=== PATIENT | female | born 1995 | race Caucasian/White ===

== ENCOUNTER → 2016-10-20 | Outpatient (REF) | payer BC | LOC: M SFHCWAGY 12:46 | PROVIDERS: ATTEND Nurse Practitioner Family | DX: Z11.3 Encounter for screening for infections with a predominantly sexual mode of transmission (principal) ==

== ENCOUNTER → 2017-01-05 | Outpatient (REF) | payer BC | LOC: M WUC 16:47 | PROVIDERS: ATTEND Physician Assistant | DX: J02.9 Acute pharyngitis, unspecified (principal) ==

== ENCOUNTER → 2017-02-13 | Outpatient (CLI) | payer BC ==
--- NOTE | 2017-02-13 22:44 | REP ---
Clinical: Pain without trauma . Technique: AP, lateral, bilateral oblique views. Findings: No acute fracture or dislocation. Mild right lateral swelling noted. Skeletal structures and joint spaces are intact and normal. Ankle mortise appears stable. No subcutaneous emphysema or radiodense foreign body. Impression: Mild lateral swelling. No acute fracture dislocation. Signed by Selvin Jane MD 02/13/2017 10:29 P
== END ==
LOC: M WUC 18:59
PROVIDERS: ATTEND Physician Assistant
DX: M25.571 Pain in right ankle and joints of right foot (principal); M25.471 Effusion, right ankle

== ENCOUNTER → 2017-09-25 | Outpatient (CLI) | payer BC ==
[2017-09-25 17:54] LABS: ALBUMIN 4.2 GM/DL (3.2-5.2); ALBUMIN/GLOBULIN RATIO 1.14 (1.00-1.93); ALKALINE PHOSPHATASE 66 U/L (45-117); ALT/SGPT 16 U/L (12-78); ANION GAP 11 MEQ/L (8-16); AST/SGOT 19 U/L (7-37); BILIRUBIN,TOTAL 0.6 MG/DL (0.2-1.0); BLOOD UREA NITROGEN 9 MG/DL (7-18); CALCIUM LEVEL 9.2 MG/DL (8.5-10.1); CARBON DIOXIDE LEVEL 22 MEQ/L (21-32); CHLORIDE LEVEL 108 MEQ/L (98-107); CHOLESTEROL LEVEL 182 MG/DL (<200); CHOLESTEROL RISK RATIO 4.439 (<5); CREATININE FOR GFR 0.65 MG/DL (0.55-1.30); GLUCOSE, FASTING 72 MG/DL (70-100); HCG, SERUM QUANTITATIVE < 1.0 MIU/ML; HDL CHOLESTEROL 41 MG/DL (>40); LDL CHOLESTEROL 112.6 MG/DL (<100); NON-HDL-C 141 MG/DL; POTASSIUM SERUM 4.8 MEQ/L (3.5-5.1); SODIUM LEVEL 141 MEQ/L (136-145); TOTAL PROTEIN 7.9 GM/DL (6.4-8.2); TRIGLYCERIDES LEVEL 142 MG/DL (<150)
[2017-09-25 18:55] LABS: BASO # 0.1 10^3/uL (0.0-0.2); BASO % 0.7 % (0.0-1.0); EOS # 0.1 10^3/uL (0.0-0.50); EOS % 1.1 % (0.0-3.0); HEMATOCRIT 45.7 % (36.0-47.0); HEMOGLOBIN 15.2 g/dl (12.0-16.0); IMMATURE GRANULOCYTE % 0.3 % (0-3.0); LYMPH # 2.1 10^3/uL (1.5-6.5); MEAN CORPUSCULAR HEMOGLOBIN 31.5 pg (27.0-33.0); MEAN CORPUSCULAR HGB CONC 33.3 g/dl (32.0-36.5); MEAN CORPUSCULAR VOLUME 94.8 fl (80.0-96.0); MONO # 0.5 10^3/uL (0.0-0.8); MONO % 4.8 % (0.0-5.0); NEUTROPHILS # 7.3 10^3/uL (1.8-7.7); NEUTROPHILS % 72.1 % (36.0-66.0); PLATELET COUNT, AUTOMATED 288 10^3/uL (150-450); RED BLOOD COUNT 4.82 10^6/uL (4.00-5.40); RED CELL DISTRIBUTION WIDTH 12.9 % (11.5-14.5); WHITE BLOOD COUNT 10.1 10^3/uL (4.0-10.0)
== END ==
LOC: M WUC 13:23
DX: Z79.899 Other long term (current) drug therapy (principal); L70.0 Acne vulgaris

== ENCOUNTER → 2017-10-19 | Outpatient (REF) | payer BC ==
[2017-10-19 15:35] LABS: CHLAMYDIA DNA AMPLIFICATION NEGATIVE (NEGATIVE); GC DNA AMPLIFICATION NEGATIVE (NEGATIVE)
== END ==
LOC: M SFHCWAGY 12:09
DX: Z11.3 Encounter for screening for infections with a predominantly sexual mode of transmission (principal)
CPT/HCPCS: 87591

== ENCOUNTER → 2017-10-20 | Outpatient (CLI) | payer BC ==
[2017-10-20 17:45] LABS: HCG, SERUM QUANTITATIVE < 1.0 MIU/ML
== END ==
LOC: M WUC 14:21
DX: L70.0 Acne vulgaris (principal)
CPT/HCPCS: 84702

== ENCOUNTER → 2017-10-24 | Outpatient (CLI) | payer BC | LOC: M WHC 14:22 | DX: R10.2 Pelvic and perineal pain (principal) | CPT/HCPCS: 76830 ==

== ENCOUNTER → 2017-12-20 | Outpatient (REF) | payer BC ==
[2017-12-20 19:32] LABS: CONTROL LINE UCG INT CTR LINE PRESENT; URINE PREG TEST NEGATIVE (NEGATIVE)
== END ==
LOC: M LAB REF 19:08
DX: Z79.899 Other long term (current) drug therapy (principal); L70.0 Acne vulgaris
CPT/HCPCS: 84703

== ENCOUNTER → 2017-12-26 | Outpatient (REF) | payer BC ==
[2017-12-26 17:35] LABS: CHLAMYDIA DNA AMPLIFICATION NEGATIVE (NEGATIVE); GC DNA AMPLIFICATION NEGATIVE (NEGATIVE)
== END ==
LOC: M SFHCWAGY 14:14
DX: Z12.4 Encounter for screening for malignant neoplasm of cervix (principal)
CPT/HCPCS: 87591

== ENCOUNTER → 2018-01-19 | Outpatient (REF) | payer BC ==
[2018-01-19 19:09] LABS: CONTROL LINE UCG INT CTR LINE PRESENT; URINE PREG TEST NEGATIVE (NEGATIVE)
== END ==
LOC: M LAB REF 16:12
DX: Z79.899 Other long term (current) drug therapy (principal); L70.0 Acne vulgaris
CPT/HCPCS: 84703

== ENCOUNTER → 2018-02-20 | Outpatient (REF) | payer BC ==
[2018-02-21 11:12] LABS: CONTROL LINE UCG INT CTR LINE PRESENT; URINE PREG TEST NEGATIVE (NEGATIVE)
== END ==
LOC: M LABDRWAD 11:01
DX: Z79.899 Other long term (current) drug therapy (principal)
CPT/HCPCS: 84703

== ENCOUNTER → 2018-03-15 | Outpatient (CLI) | payer BC ==
[2018-03-15 13:49] LABS: BASO % 0.5 % (0.0-1.0); EOS # 0.1 10^3/uL (0.0-0.50); EOS % 1.2 % (0.0-3.0); HEMOGLOBIN 14.1 g/dl (12.0-15.5); IMMATURE GRANULOCYTE % 0.2 % (0-3.0); LYMPH # 2.2 10^3/uL (1.5-6.5); LYMPH % 34.5 % (24.0-44.0); MEAN CORPUSCULAR HEMOGLOBIN 31.7 pg (27.0-33.0); MEAN CORPUSCULAR HGB CONC 34.4 g/dl (32.0-36.5); MEAN CORPUSCULAR VOLUME 92.1 fl (80.0-96.0); MONO # 0.4 10^3/uL (0.0-0.8); MONO % 6.3 % (0.0-5.0); NEUTROPHILS # 3.7 10^3/uL (1.8-7.7); NEUTROPHILS % 57.3 % (36.0-66.0); PLATELET COUNT, AUTOMATED 342 10^3/uL (150-450); RED BLOOD COUNT 4.45 10^6/uL (4.00-5.40); RED CELL DISTRIBUTION WIDTH 12.3 % (11.5-14.5); WHITE BLOOD COUNT 6.5 10^3/uL (4.0-10.0)
[2018-03-15 15:36] LABS: ALBUMIN 3.8 GM/DL (3.2-5.2); ALBUMIN/GLOBULIN RATIO 0.95 (1.00-1.93); ALKALINE PHOSPHATASE 67 U/L (45-117); ALT/SGPT 19 U/L (12-78); ANION GAP 8 MEQ/L (8-16); AST/SGOT 18 U/L (7-37); BILIRUBIN,TOTAL 0.4 MG/DL (0.2-1.0); BLOOD UREA NITROGEN 12 MG/DL (7-18); CALCIUM LEVEL 9.3 MG/DL (8.5-10.1); CARBON DIOXIDE LEVEL 26 MEQ/L (21-32); CHLORIDE LEVEL 106 MEQ/L (98-107); CHOLESTEROL LEVEL 172 MG/DL (<200); CHOLESTEROL RISK RATIO 4.095 (<5); CREATININE FOR GFR 0.69 MG/DL (0.55-1.30); GLOMERULAR FILTRATION RATE > 60.0 (>60); GLUCOSE, FASTING 70 MG/DL (70-100); HCG, SERUM QUANTITATIVE < 1.0 MIU/ML; HDL CHOLESTEROL 42 MG/DL (>40); LDL CHOLESTEROL 83.4 MG/DL (<100); NON-HDL-C 130 MG/DL; SODIUM LEVEL 140 MEQ/L (136-145); TOTAL PROTEIN 7.8 GM/DL (6.4-8.2); TRIGLYCERIDES LEVEL 233 MG/DL (<150)
[2018-03-15 15:38] LABS: POTASSIUM SERUM 5.2 MEQ/L (3.5-5.1)
== END ==
LOC: M WUC 11:21
DX: L70.0 Acne vulgaris (principal)
CPT/HCPCS: 80053

== ENCOUNTER 2019-07-03 08:19 | Emergency (ER) | payer BC ==
[~2019-07-03] VITALS: Ht 165.1 cm; Wt 58.5 kg
[2019-07-03] MEDS ORDERED: MINO100C4 (08:33)
[2019-07-03] MEDS ORDERED: VALA1TAB2 (08:33)
[2019-07-03] MEDS ORDERED: METF500T13 (08:33)
--- NOTE | 2019-07-03 09:09 | REP ---
Clinical: Dizziness . Comparison: None . Technique: PA and lateral. Findings: The mediastinum and cardiac silhouette are normal. The lung pizarro are clear and without acute consolidation, effusion, or pneumothorax. The skeletal structures are intact and normal. Impression: 1. No acute cardiopulmonary process. Electronically Signed by Selvin Jane MD 07/03/2019 09:00 A
[2019-07-03] MEDS ORDERED: METOCLOPRAMIDE INJ 10MG/2ML VIAL (J2765) IV ONE (09:15)
[2019-07-03 09:38] LABS: BASO % 0.4 % (0.0-1.0); EOS % 0.4 % (0.0-3.0); HEMATOCRIT 41.8 % (36.0-47.0); HEMOGLOBIN 14.3 g/dl (12.0-15.5); LYMPH # 2.6 10^3/uL (1.5-5.0); LYMPH % 28.2 % (24.0-44.0); MEAN CORPUSCULAR HEMOGLOBIN 32.4 pg (27.0-33.0); MEAN CORPUSCULAR HGB CONC 34.2 g/dl (32.0-36.5); MEAN CORPUSCULAR VOLUME 94.6 fl (80.0-96.0); MONO # 0.6 10^3/uL (0.0-0.8); MONO % 6.4 % (0.0-5.0); NEUTROPHILS % 64.3 % (36.0-66.0); PLATELET COUNT, AUTOMATED 282 10^3/uL (150-450); RED BLOOD COUNT 4.42 10^6/uL (4.00-5.40); WHITE BLOOD COUNT 9.3 10^3/uL (4.0-10.0)
[2019-07-03] MEDS ORDERED: NS 1,000 ML IV ONE ×2 (09:45→12:00)
[2019-07-03 09:55] LABS: HCG, SERUM QUALITATIVE POSITIVE (NEGATIVE)
[2019-07-03 10:02] LABS: ALBUMIN 3.4 GM/DL (3.2-5.2); ALT/SGPT 23 U/L (12-78); BILIRUBIN,DIRECT 0.2 MG/DL (0.0-0.2); BILIRUBIN,TOTAL 0.8 MG/DL (0.2-1.0); BLOOD UREA NITROGEN 14 MG/DL (7-18); CALCIUM LEVEL 8.7 MG/DL (8.5-10.1); CARBON DIOXIDE LEVEL 22 MEQ/L (21-32); CHLORIDE LEVEL 109 MEQ/L (98-107); CREATININE FOR GFR 0.66 MG/DL (0.55-1.30); FREE T4 1.14 NG/DL (0.76-1.46); GLOMERULAR FILTRATION RATE > 60.0 (>60); GLUCOSE, FASTING 63 MG/DL (70-100); PHOSPHORUS LEVEL 4.5 MG/DL (2.5-4.9); POTASSIUM SERUM 4.6 MEQ/L (3.5-5.1); SODIUM LEVEL 139 MEQ/L (136-145); THYROID STIMULATING HORMONE 0.346 uIU/ML (0.358-3.740); TOTAL PROTEIN 6.7 GM/DL (6.4-8.2)
[2019-07-03 10:03] LABS: MAGNESIUM LEVEL 1.8 MG/DL (1.8-2.4)
[2019-07-03 10:41] LABS: HCG, SERUM QUANTITATIVE 118671 MIU/ML
--- NOTE | 2019-07-03 11:11 | REP ---
Clinical: Dating and viability. Technique: Transabdominal first trimester obstetrical ultrasound with color Doppler evaluation. Findings: Single live early intrauterine is appreciated. Biometrical measurements corresponds to 13 weeks 1 day gestational age with estimated date of delivery 01/07/2020. heart rate equals 144 beats per minute. No gross abnormalities are identified. Impression: Single live early intrauterine at 13 weeks 1 day gestational age. Complete anatomical assessment should be performed and 19-20 weeks. Electronically Signed by Selvin Jane MD 07/03/2019 11:03 A
[2019-07-03 13:18] LABS: CHLAMYDIA DNA AMPLIFICATION NEGATIVE (NEGATIVE); GC DNA AMPLIFICATION NEGATIVE (NEGATIVE)
[2019-07-03 13:30] VITALS: BP 118/79
--- NOTE | 2019-07-03 23:58 | ECGEPIP ---
[facility] - ED Test Date: 2019-07-03 Pat Name: PHYLLIS CURRAN Department: Room: - Gender: Female University Professor: TC : 1995 Requested By: FAMILIA Webster Order Number: [id number] Reading MD: Matthew Akins Measurements Intervals Aldie Rate: 94 P: 61 MN: 168 QRS: 70 QRSD: 80 T: 59 QT: 357 QTc: 449 Interpretive Statements SINUS RHYTHM NO PRIORS FOR COMPARISON Electronically Signed on 07-03-2019 23:58:45 EST by Matthew Akins
== END 2019-07-03 14:28 | disposition home or self-care (01) ==
LOC: M ED 08:19
DX: O26.51 Maternal hypotension syndrome, first trimester (principal); Z3A.13 13 weeks gestation of pregnancy; Z79.899 Other long term (current) drug therapy; Z88.8 Allergy status to other drugs, medicaments and biological substances
CPT/HCPCS: 36415; 71046; 76801; 80048; 80076; 81001; 83735; 84100; 84439; 84443; 84702; 84703; 85025; 86850; 86900; 86901; 87210; 87491; 87591; 93005; 93041; 93976; 96361; 96374; 99285; J2765

== ENCOUNTER → 2022-01-04 | Outpatient (REF) | payer BC, MEDICAID ==
[~2022-01-04] MED LIST: METF500T13; MINO100C4; VALA1TAB5
[2022-01-04 14:14] LABS: GC DNA AMPLIFICATION NEGATIVE (NEGATIVE)
== END ==
LOC: M LAB REF 12:05
PROVIDERS: ATTEND Physician Assistant
DX: R30.0 Dysuria (principal)

== ENCOUNTER → 2022-11-29 | Outpatient (REF) | payer BC | LOC: M LAB REF 12:27 | PROVIDERS: ATTEND Nurse Practitioner Family | DX: R30.0 Dysuria (principal) ==

== ENCOUNTER → 2022-11-30 | Outpatient (REF) | payer BC, MEDICAID | LOC: M PLALAB 17:12 | PROVIDERS: ATTEND Nurse Practitioner Family | DX: Z11.3 Encounter for screening for infections with a predominantly sexual mode of transmission (principal); N89.8 Other specified noninflammatory disorders of vagina ==

== ENCOUNTER → 2022-12-14 | Outpatient (REF) | payer BC, MEDICAID ==
[2022-12-14 17:38] LABS: URINE PREG TEST NEGATIVE (NEGATIVE)
[2022-12-14 17:47] LABS: APPEARANCE, URINE CLEAR (CLEAR); BACTERIA, URINE AUTO NEGATIVE (NEGATIVE); BILIRUBIN, URINE AUTO NEGATIVE (NEGATIVE); BLOOD, URINE BLOOD 2+ (NEGATIVE); COLOR, URINE YELLOW (YELLOW); GLUCOSE, URINE (UA) AUTO NEGATIVE (NEGATIVE); KETONE, URINE AUTO NEGATIVE (NEGATIVE); LEUKOCYTE ESTERASE, URINE AUTO TRACE (NEGATIVE); NITRITE, URINE AUTO NEGATIVE (NEGATIVE); PROTEIN, URINE AUTO NEGATIVE (NEGATIVE); RBC, URINE AUTO 0 /HPF (0-3); SPECIFIC GRAVITY URINE AUTO 1.018 (1.002-1.035); SQUAMOUS EPITHELIAL CELL UR AU 4 /HPF (0-6); UROBILINOGEN, URINE AUTO 0.2 mg/dL (0.0-2.0); WBC, URINE AUTO 0 /HPF (0-3)
== END ==
LOC: M SFHCWAGY 16:46
PROVIDERS: ATTEND Nurse Practitioner Family
DX: R39.15 Urgency of urination (principal); Z30.09 Encounter for other general counseling and advice on contraception

== ENCOUNTER → 2023-01-11 | Outpatient (CLI) | payer BC, MEDICAID | LOC: M WHC 14:08 | PROVIDERS: ATTEND Nurse Practitioner Family | DX: R10.2 Pelvic and perineal pain (principal); N83.201 Unspecified ovarian cyst, right side; R14.0 Abdominal distension (gaseous) ==

== ENCOUNTER → 2024-04-01 | Outpatient (REF) | payer OTHER ==
[2024-04-01 21:41] LABS: APPEARANCE, URINE HAZY (CLEAR); BACTERIA, URINE AUTO 1+ (NEGATIVE); BILIRUBIN, URINE AUTO NEGATIVE (NEGATIVE); BLOOD, URINE BLOOD 3+ (NEGATIVE); COLOR, URINE YELLOW (YELLOW); GLUCOSE, URINE (UA) AUTO NEGATIVE (NEGATIVE); KETONE, URINE AUTO NEGATIVE (NEGATIVE); LEUKOCYTE ESTERASE, URINE AUTO 3+ (NEGATIVE); NITRITE, URINE AUTO NEGATIVE (NEGATIVE); PROTEIN, URINE AUTO NEGATIVE (NEGATIVE); RBC, URINE AUTO 9 /HPF (0-3); SPECIFIC GRAVITY URINE AUTO 1.004 (1.002-1.035); SQUAMOUS EPITHELIAL CELL UR AU 1 /HPF (0-6); UROBILINOGEN, URINE AUTO 0.2 mg/dL (0.0-2.0); WBC, URINE AUTO TNTC /HPF (0-3)
== END ==
LOC: M LAB REF 20:55
PROVIDERS: ATTEND Physician Assistant Medical
DX: N39.0 Urinary tract infection, site not specified (principal)

== ENCOUNTER → 2024-06-03 | Outpatient (REF) | payer OTHER ==
[~2024-06-03] MED LIST changes: +CIPR-249 PO; +CIPR500T39 PO; +FLOM0.4C39 PO; +FLUO40CA PO; +IBUP-1022 PO; +IBUP200C28 PO; +METF-838 PO; +PERC5TAB12 PO
== END ==
LOC: M LAB REF 12:20
PROVIDERS: ATTEND Physician Assistant
DX: B34.9 Viral infection, unspecified (principal)

== ENCOUNTER 2024-06-05 03:28 | Emergency (ER) | payer OTHER ==
[~2024-06-05] VITALS: Ht 167.6 cm; Wt 56.8 kg
[~2024-06-05 03:28] MED LIST changes: -CIPR-249 PO; -CIPR500T39 PO; -FLOM0.4C39 PO; -FLUO40CA PO; -IBUP-1022 PO; -IBUP200C28 PO; -METF-838 PO; -PERC5TAB12 PO
[2024-06-05] MEDS: MORPHINE 4 MG/ML 1ML VIAL IV ONE (04:02)
[2024-06-05] MEDS: ONDANSETRON 4MG 2ML VIAL IV ONE (04:02)
[2024-06-05 04:19] LABS: BASO # 0.1 10^3/uL (0.0-0.2); BASO % 0.5 % (0.0-1.0); EOS # 0.1 10^3/uL (0.0-0.5); EOS % 0.9 % (0.0-3.0); HEMOGLOBIN 13.7 g/dl (12.0-15.5); LYMPH # 3.7 10^3/uL (1.5-5.0); MEAN CORPUSCULAR HEMOGLOBIN 32.2 pg (27.0-33.0); MEAN CORPUSCULAR HGB CONC 35.1 g/dl (32.0-36.5); MEAN CORPUSCULAR VOLUME 91.5 fl (80.0-96.0); MONO # 0.8 10^3/uL (0.0-0.8); MONO % 5.9 % (2.0-8.0); NEUTROPHILS # 8.6 10^3/uL (1.5-8.5); NEUTROPHILS % 64.4 % (36.0-66.0); PLATELET COUNT, AUTOMATED 396 10^3/uL (150-450); RED BLOOD COUNT 4.26 10^6/uL (4.00-5.40); WHITE BLOOD COUNT 13.3 10^3/uL (4.0-10.0)
[2024-06-05 04:35] LABS: LIPASE 31 U/L (12-53)
[2024-06-05 04:37] LABS: ALKALINE PHOSPHATASE 83 U/L (35-104); ALT/SGPT 13 U/L (7.0-40); AST/SGOT 14 U/L (<34); BILIRUBIN,DIRECT 0.2 MG/DL (<0.4); BILIRUBIN,TOTAL 0.8 MG/DL (0.3-1.2); BLOOD UREA NITROGEN 15 MG/DL (9-23); CALCIUM LEVEL 9.9 MG/DL (8.5-10.1); CARBON DIOXIDE LEVEL 21 MMOL/L (20-31); CHLORIDE LEVEL 105 MMOL/L (98-107); CREATININE FOR GFR 0.71 MG/DL (0.55-1.30); GLOMERULAR FILTRATION RATE > 60.0 (>60); GLUCOSE, FASTING 172 MG/DL (60-100); POTASSIUM SERUM 3.8 MMOL/L (3.5-5.1); SODIUM LEVEL 136 MMOL/L (136-145); TOTAL PROTEIN 7.5 G/DL (5.7-8.2)
[2024-06-05 04:47] LABS: HCG, SERUM QUALITATIVE NEGATIVE (NEGATIVE)
[2024-06-05] MEDS ORDERED: ISOVUE-370 76% 100ML VIAL As Ordered ONE (04:57)
[2024-06-05 05:13] LABS: Trichomonas vaginalis (AMP) NOT DETECTED (NEGATIVE)
[2024-06-05] MEDS: KETOROLAC 30 MG/ML 1ML VIAL IV ONE (05:35)
[2024-06-05] MEDS: PROMETHAZINE 25MG/ML 1ML VIAL IV ONE (05:35)
[2024-06-05 05:37] LABS: GC DNA AMPLIFICATION NEGATIVE (NEGATIVE)
[2024-06-05] MEDS: TAMSULOSIN 0.4 MG CAP PO ONE (07:00)
[2024-06-05] MEDS: NS 1,000 ML IV ONE (07:00)
[2024-06-05 08:10] VITALS: TEMP 97.8
[2024-06-05] MEDS ORDERED: IBUP200C28 PO (08:20)
[2024-06-05] MEDS ORDERED: METF-838 PO (08:20)
[2024-06-05] MEDS ORDERED: HOME MED LIST COMPLETE! XX SCH (08:20)
[2024-06-05] MEDS ORDERED: FLUO40CA PO (08:20)
[2024-06-05] MEDS: CIPROFLOXACIN 500MG TABLET PO ONE (09:32)
[2024-06-05] MEDS ORDERED: CIPR500T39 PO (09:46)
[2024-06-05] MEDS ORDERED: CIPR-249 PO (09:46)
[2024-06-05] MEDS ORDERED: FLOM0.4C39 PO (09:47)
[2024-06-05] MEDS ORDERED: IBUP-1022 PO (09:48)
[2024-06-05] MEDS ORDERED: PERC5TAB12 PO (09:48)
[2024-06-05 10:00] VITALS: BP 94/53; O2SAT 99
== END 2024-06-05 10:28 | disposition home or self-care (01) ==
LOC: M ED 03:28
DX: N20.1 Calculus of ureter (principal); N13.4 Hydroureter; N39.0 Urinary tract infection, site not specified; Z79.899 Other long term (current) drug therapy; Z88.2 Allergy status to sulfonamides
CPT/HCPCS: 74177; 80047; 80048; 80076; 81001; 83690; 84703; 85025; 87086; 87661; 87810; 87850; 96374; 96375; 99284; J1885; J2405; J2550; Q9967

== ENCOUNTER → 2025-03-10 | Outpatient (REF) | payer OTHER ==
[~2025-03-10] MED LIST changes: +CIPR-249 PO; +CIPR500T39 PO; +FLUO40CA PO; +IBUP-1022 PO; +IBUP200C28 PO; +METF-838 PO; +PERC5TAB12 PO; +TAMS-18 PO
[2025-03-10 17:25] LABS: URINE PREG TEST NEGATIVE (NEGATIVE)
[2025-03-10 17:35] LABS: APPEARANCE, URINE CLEAR (CLEAR); BACTERIA, URINE AUTO NEGATIVE (NEGATIVE); BILIRUBIN, URINE AUTO NEGATIVE (NEGATIVE); BLOOD, URINE BLOOD NEGATIVE (NEGATIVE); GLUCOSE, URINE (UA) AUTO NEGATIVE (NEGATIVE); KETONE, URINE AUTO NEGATIVE (NEGATIVE); LEUKOCYTE ESTERASE, URINE AUTO NEGATIVE (NEGATIVE); MUCUS, URINE SMALL (NEGATIVE); NITRITE, URINE AUTO NEGATIVE (NEGATIVE); PROTEIN, URINE AUTO NEGATIVE (NEGATIVE); RBC, URINE AUTO 1 /HPF (0-3); SPECIFIC GRAVITY URINE AUTO 1.021 (1.002-1.035); SQUAMOUS EPITHELIAL CELL UR AU 1 /HPF (0-6); UROBILINOGEN, URINE AUTO 0.2 mg/dL (0.0-2.0); WBC, URINE AUTO 1 /HPF (0-3)
== END ==
LOC: M LAB REF 17:08
PROVIDERS: ATTEND Physician Assistant Medical
DX: N39.0 Urinary tract infection, site not specified (principal)

== ENCOUNTER → 2025-05-01 | Outpatient (CLI) | payer OTHER ==
[~2025-05-01] MED LIST changes: -IBUP-1022 PO; +IBUP600T42 PO
[2025-05-01 18:25] LABS: PLATELET COUNT, AUTOMATED 353 10^3/uL (150-450)
[2025-05-01 18:34] LABS: Trichomonas vaginalis (AMP) NOT DETECTED (NEGATIVE)
[2025-05-01 18:57] LABS: GC DNA AMPLIFICATION NEGATIVE (NEGATIVE)
[2025-05-01 19:20] LABS: HIV 1&2 SCREEN NEGATIVE (NEGATIVE)
[2025-05-01 19:28] LABS: HEPATITIS C VIRUS ABY INDEX 0.10 INDEX (<0.8)
== END ==
LOC: M PLALAB 15:38
PROVIDERS: ATTEND Advanced Practice Midwife
DX: Z34.81 Encounter for supervision of other normal pregnancy, first trimester (principal)

== ENCOUNTER → 2025-05-01 | Outpatient (REF) | payer OTHER | LOC: M PLALAB 15:33 | PROVIDERS: ATTEND Advanced Practice Midwife | DX: Z53.9 Procedure and treatment not carried out, unspecified reason (principal) ==

== ENCOUNTER → 2025-05-21 | Outpatient (CLI) | payer OTHER | LOC: M RAD 16:11 | PROVIDERS: ATTEND Advanced Practice Midwife | DX: O34.81 Maternal care for other abnormalities of pelvic organs, first trimester (principal); Z3A.13 13 weeks gestation of pregnancy ==

== ENCOUNTER → 2025-06-12 | Outpatient (REF) | payer OTHER ==
[2025-06-12 15:24] LABS: APPEARANCE, URINE CLEAR (CLEAR); BACTERIA, URINE AUTO NEGATIVE (NEGATIVE); BILIRUBIN, URINE AUTO NEGATIVE (NEGATIVE); BLOOD, URINE BLOOD NEGATIVE (NEGATIVE); GLUCOSE, URINE (UA) AUTO 1+ mg/dL (NEGATIVE); KETONE, URINE AUTO NEGATIVE (NEGATIVE); LEUKOCYTE ESTERASE, URINE AUTO NEGATIVE (NEGATIVE); MUCUS, URINE SMALL (NEGATIVE); NITRITE, URINE AUTO NEGATIVE (NEGATIVE); PROTEIN, URINE AUTO NEGATIVE (NEGATIVE); RBC, URINE AUTO 1 /HPF (0-3); SPECIFIC GRAVITY URINE AUTO 1.023 (1.002-1.035); SQUAMOUS EPITHELIAL CELL UR AU 1 /HPF (0-6); UROBILINOGEN, URINE AUTO 0.2 mg/dL (0.0-2.0); WBC, URINE AUTO 1 /HPF (0-3)
== END ==
LOC: M SFHCWAGY 14:49
PROVIDERS: ATTEND Obstetrics & Gynecology
DX: R30.0 Dysuria (principal)

== ENCOUNTER → 2025-07-11 | Outpatient (CLI) | payer OTHER | LOC: M RAD 14:22 | PROVIDERS: ATTEND Nurse Practitioner Family | DX: Z34.82 Encounter for supervision of other normal pregnancy, second trimester (principal); Z3A.20 20 weeks gestation of pregnancy ==